=== PATIENT | female | born 1930 | race Two or more races ===

== ENCOUNTER 2017-10-09 08:59 | Outpatient (CLI) | payer OTHER ==
[~2017-10-09 08:59] MED LIST: TOPROL XL25 M1 PO
== END 2017-10-09 09:30 | disposition home or self-care (01) ==
LOC: NUCLEAR 08:59
DX: C50.111 Malignant neoplasm of central portion of right female breast (principal); C79.51 Secondary malignant neoplasm of bone
CPT/HCPCS: 78306; A9503

== ENCOUNTER 2018-04-20 08:47 | Outpatient (CLI) | payer OTHER | END 2018-04-20 08:57 | disposition home or self-care (01) | LOC: NUCLEAR 08:47 | DX: C50.111 Malignant neoplasm of central portion of right female breast (principal); C79.51 Secondary malignant neoplasm of bone | CPT/HCPCS: 78306; A9503 ==

== ENCOUNTER → 2019-02-12 | Outpatient (CLI) | payer OTHER | END | disposition home or self-care (01) | LOC: NUCLEAR 08:11 | DX: C50.111 Malignant neoplasm of central portion of right female breast (principal); C79.51 Secondary malignant neoplasm of bone | CPT/HCPCS: 78306; A9503 ==

== ENCOUNTER 2019-03-03 08:45 | Emergency (ER) | payer OTHER ==
[~2019-03-03] VITALS: Ht 160 cm; Wt 49.9 kg
== END 2019-03-03 13:52 | disposition home or self-care (01) ==
LOC: ER 08:45
DX: M79.601 Pain in right arm (principal); R20.2 Paresthesia of skin; R42 Dizziness and giddiness

== ENCOUNTER → 2019-06-24 | Outpatient (CLI) | payer OTHER | END | disposition home or self-care (01) | LOC: RAD 13:53 | DX: C50.111 Malignant neoplasm of central portion of right female breast (principal); C79.51 Secondary malignant neoplasm of bone ==

== ENCOUNTER 2020-08-02 15:19 | Outpatient (CLI) | payer OTHER | END 2020-08-02 15:24 | disposition home or self-care (01) | LOC: RAD 15:19 | PROVIDERS: ATTEND Internal Medicine Hematology & Oncology | DX: C79.51 Secondary malignant neoplasm of bone (principal) ==

== ENCOUNTER 2020-09-12 07:20 | Outpatient (CLI) | payer OTHER | END 2020-09-12 07:21 | disposition home or self-care (01) | LOC: NUCLEAR 07:20 | PROVIDERS: ATTEND Internal Medicine Hematology & Oncology | DX: C79.51 Secondary malignant neoplasm of bone (principal) | CPT/HCPCS: 78306; A9503 ==

== ENCOUNTER 2021-07-30 07:14 | Outpatient (CLI) | payer OTHER | END 2021-07-30 07:15 | disposition home or self-care (01) | LOC: NUCLEAR 07:14 | PROVIDERS: ATTEND Internal Medicine Hematology & Oncology | DX: C50.111 Malignant neoplasm of central portion of right female breast (principal); Z17.1 Estrogen receptor negative status [ER-] | CPT/HCPCS: 78315; A9503 ==

== ENCOUNTER 2022-02-10 12:35 | Emergency (ER) | payer OTHER ==
[~2022-02-10] VITALS: Ht 152.4 cm; Wt 49.0 kg
[2022-02-10] MEDS ORDERED: MEMANTINE HCL10 MG PO (12:52)
[2022-02-10] MEDS ORDERED: DONEPEZIL HCL OD5 MG PO (12:53)
== END 2022-02-10 20:32 | disposition home or self-care (01) ==
LOC: ER 12:35
DX: R10.2 Pelvic and perineal pain (principal); N13.30 Unspecified hydronephrosis; Z88.2 Allergy status to sulfonamides; E11.9 Type 2 diabetes mellitus without complications; Z79.84 Long term (current) use of oral hypoglycemic drugs; I10 Essential (primary) hypertension